=== PATIENT | male | born 1955 | race Caucasian/White ===

== ENCOUNTER 2024-02-21 11:14 | Observation (INO) | payer MEDICARE, BC, SELFPAY ==
[2024-02-21] VITALS (29 sets, daily range): BP systolic 123–162; BP diastolic 69–118; PULSE 79–159; RESP 14–35; TEMP 36.3–37.1; O2SAT 93–99; BMI 46.5
--- NOTE | 2024-02-21 | ECHO_ITS ---
Patient Info Name: Mike Zhang Age: 68 years : 1955 Gender: Male Ht: 73 in Wt: 352 lbs BSA: 2.94 m2 HR: 120 bpm BP: 128 / 76 mmHg Heart Rhythm: Atrial Flutter Technical Quality: Poor Exam Date: 02/21/2024 3:48 PM Exam Location: Echo Lab Patient Status: Inpatient Admit Date: 02/21/2024 Staff Ordering Physician: Joy Joel Orthotic Fitter: Jj Fong RDCS Attending Provider: Albina Isaacs MD Referring Physician: Marycruz ALY; Exam Type: CA echo dop color flow w con Study Info Indications - atrial flutter Complete two-dimensional, color flow and Doppler transthoracic echocardiogram is performed with contrast to opacify the left ventricle and to improve the deliniation of the left ventricle endocardial borders. Contrast/Agitated Saline Contrast/Ag. Saline: Definity Amount: 4.00 ml Existing IV Access: Yes Reason for Poor Study: patient body habitus Summary 1. Technically difficult echocardiogram, definity contrast utilized to improve enhance visualization. 2. Normal left ventricular size with mildly reduced systolic function. 3. Mildly sclerotic aortic valve which is nonstenotic. 4. Atrial flutter. Left Ventricle Left ventricular chamber dimension is normal. Left ventricular systolic function is mildly reduced, estimated at 45-50%. The left ventricular diastolic function is grade I diastolic dysfunction. Right Ventricle Right ventricular chamber dimension is normal. Left Atria Left atrial chamber dimension is normal. Right Atria Right atrial chamber dimension is normal. Aortic Valve The aortic valve is not well visualized. There is mild aortic valve sclerosis. Pulmonic Valve The pulmonic valve is not well visualized. Mitral Valve The mitral valve has normal leaflets. Tricuspid Valve The tricuspid valve leaflets are not well visualized. Pericardium/Pleural The pericardium appears normal. Aorta The aortic root size at the sinus of Valsalva is normal. Left Ventricular Outflow Tract Name Value Normal LVOT 2D LVOT Diameter 1.97 cm LVOT Doppler LVOT Peak Gradient 5 mmHg LVOT Mean Gradient 3 mmHg LVOT VTI 18.80 cm LVOT VTI/AV VTI Ratio 0.92 LVOT Stroke Volume 57.32 ml LVOT CO 3.07 l/min LVOT CI 1.04 L/min/m2 Pulmonic Valve Name Value Normal PV Doppler PV Peak Gradient 4 mmHg Mitral Valve Name Value Normal MV Doppler MV Peak Gradient 4 mmHg MV Mean Gradient
--- NOTE | ~2024-02-21 | XR_ITS ---
XR chest 1V portable 02/21/2024 13:04 Indication: Shortness of breath Procedure: AP portable chest Comparison: 11/28/2011 Findings: Cardiomegaly with interstitial edema. No pleural effusion or pneumothorax. Impression: 1: Cardiomegaly with mild interstitial edema. Reviewed, dictated and finalized at location B. Impression: 1: Cardiomegaly with mild interstitial edema.
--- NOTE | 2024-02-21 11:17 | ECG_ITS ---
Test Date: 2024-02-21 11:22:43 Measurements Intervals [place] Rate: 158 P: 0 CA: 0 QRS: -6 QRSD: 96 T: 48 QT: 267 QTc: 434 Interpretive Statements ATRIAL FLUTTER/TACHYCARDIA WITH RAPID VENTRICULAR RESPONSE DELAYED PRECORDIAL R/S TRANSITION BORDERLINE ST ABNORMALITY- LATERAL LEADS ABNORMAL ECG No previous ECG available for comparison Electronically Signed On 02-21-2024 11:44:05 CDT by Lai Nova D.O.
[2024-02-21] MEDS: METOPROLOL TARTRATE INJ 5 MG/5 ML VIAL IV PUSH (11:41)
--- NOTE | 2024-02-21 11:42 | ED.GENADULT ---
HPI - General Adult General Chief complaint: Shortness of Breath/Dyspnea Stated complaint: sob, sweating Time Seen by Provider: 02/21/24 11:33 History of Present Illness HPI narrative: 68-year-old male presenting emergency department for evaluation for intermittent rapid heart rate. Patient states this has occurred at nighttime last few nights but feels that it does improve during the day. Yesterday patient went on extended bike ride and did not have any symptoms. Patient states that his heart rate did increase today but patient is unsure how long it has been this elevated. Patient denies any associated chest pain or shortness of breath. Patient denies any prior cardiac history. Related Data Allergies Allergy/AdvReac Type Severity Reaction Status Date / Time codeine AdvReac Intermediate Nausea and Verified 02/21/24 14:46 Vomiting Review of Systems Review of Systems: All systems reviewed & are unremarkable except as noted in HPI and below PMFSH Past Medical History Medical History (Updated 02/21/24 @ 18:33 by Anthony Ragland MD) Pre-diabetes Surgical History Surgical History Hx of cholecystectomy Hx of vasectomy Family History Family History Father COPD (chronic obstructive pulmonary disease) CHF (congestive heart failure) Mother Diabetes mellitus Social History Social History (Updated 01/09/22 @ 08:04 by Bebe Carey MA) Smoking status: Never smoker Second hand tobacco smoke exposure: No Alcohol intake: current Drinks per week: 1 Alcohol use details: Socially Substance use: never Substance use type: does not use Do You Feel Safe in your Home?: Yes Lack of Transportation: No Lack of Food: Never True Current Housing: I Have Housing Concerned About Future Housing: No Difficulty Paying Gas/Electric Bills: No Difficulty Paying for Meds: No Currently Unemployed: No Education: Don't Know Difficulty w/ Childcare or Family Care: Decline to Answer Living arrangements: with family Occupation/Education: retired Gender identity (if verbalized by the patient): Male Sexual Orientation (if Verbalized by the Patient): Straight or Heterosexual Spiritual care concerns: No Agree to blood products: Yes Exam Narrative: APPEARANCE: Well appearing, no pain, no distress, well-nourished. HEAD: normocephalic, atraumatic. EYES: PERRLA/EOMI, conjunctivae clear. NOSE: Normal no drainage EARS:TMS clear with good light reflex. THROAT: Pharynx clear, no exudate. NECK: Supple. No adenopathy, no masses. RESPIRATORY: Airway patent, respirations nonlabored. Clear to auscultation bilaterally, no rales, rhonchi, wheezing. CARDIOVASCULAR: Tachycardia ABDOMINAL: Soft, nontender, nondistended, normal bowel sounds MUSCULOSKELETAL: Moves all extremities. Strength/ROM intact, No edema, No calf tenderness. NEURO: Alert. Cranial nerves II through XII intact. Grossly intact SKIN: Warm, dry. Normal Color Course Course Emergency Course: Patient was admitted to the hospitalist for new onset atrial flutter. Cardiology was consulted. Vital Signs Vital signs: Vital Signs Temperature 98.4 F 02/21/24 11:25 Pulse Rate 158 H 02/21/24 11:25 Respiratory Rate 18 02/21/24 11:25 Blood Pressure 141/105 H 02/21/24 11:25 Pulse Oximetry 95 02/21/24 11:25 Oxygen Delivery Room Air 02/21/24 11:25 Temperature 97.4 F L 02/21/24 16:23 Pulse Rate 135 H 02/21/24 16:23 Respiratory Rate 24 H 02/21/24 16:23 Blood Pressure 127/97 H 02/21/24 16:23 Pulse Oximetry 98 02/21/24 16:23 Oxygen Delivery Room Air 02/21/24 15:00 Medical Decision Making MDM Narrative Medical decision making narrative: 68-year-old male presenting emergency department for evaluation for rapid heart rate. Patient's initial EKG was read is AFib a flutter but heart rate wa
[2024-02-21 12:03] LABS: Basophils Absolute Auto 0.1 K/mm3 (0.0-0.1); Basophils Percent Auto 0.4 % (0.2-1.2); Eosinophils Absolute Auto 0.1 K/mm3 (0-0.3); Eosinophils Percent Auto 0.5 % (0-4.4); Hemoglobin 19.5 g/dL (14.0-18.0); Immature Granulocyte Absolute 0.06 K/mm3 (0.00-0.031); Immature Granulocyte Percent A 0.4 % (0-0.5); Lymphocytes Absolute Auto 1.49 K/mm3 (0.9-3.2); Lymphocytes Percent Auto 10.8 % (18.3-44.2); Mean Corpuscular HGB Conc 33.6 g/dl (32-36); Mean Corpuscular Hemoglobin 30.8 pg (26-34); Mean Corpuscular Volume 91.6 fl (80-100); Mean Platelet Volume 9.9 fl (7.4-10.4); Monocytes Percent Auto 6.9 % (2.6-8.5); Neutrophils Absolute Auto 11.1 K/mm3 (1.3-6.7); Platelet Count Result 262 k/mm3 (150-375); Red Blood Count 6.33 M/mm3 (4.6-6.20); Red Cell Distribution Width 14.4 % (11.5-14.5); White Blood Count 13.8 K/mm3 (4.5-10.0)
[2024-02-21] MEDS: ADENOSINE IV SOLN 6 MG/2 ML VIAL IV PUSH (12:10)
[2024-02-21 12:17] LABS: Alanine Aminotransferase 31 U/L (6-50); Albumin Level 4.4 g/dL (3.5-5.1); Alkaline Phosphatase 78 U/L (38-126); Anion Gap 9 mmol/L (4-12); Aspartate Amino Transferase 26 U/L (17-59); Bilirubin,Total 1.7 mg/dL (0.2-1.3); Blood Urea Nitrogen 23 mg/dL (9-20); Calcium 8.6 mg/dL (8.4-10.2); Carbon Dioxide 27 mmol/L (22-30); Chloride 100 mmol/L (98-107); Estimated CRCL calculation 72 ml/min; Estimated Glomerular Filt Rate 51; Glucose 115 mg/dL (65-110); Potassium 4.5 mmol/L (3.4-5.0); Sodium 136 mmol/L (137-145)
--- NOTE | 2024-02-21 12:22 | ECG_ITS ---
Test Date: 2024-02-21 12:50:45 Measurements Intervals [place] Rate: 96 P: 0 MO: 0 QRS: 5 QRSD: 106 T: 56 QT: 329 QTc: 417 Interpretive Statements ATRIAL FLUTTER/TACHYCARDIA DELAYED PRECORDIAL R/S TRANSITION BASELINE ARTIFACT- I, II, III, AVL, AVF ABNORMAL ECG Compared to ECG 02/21/2024 11:22:43 HEART RATE HAS DECREASED Electronically Signed On 02-21-2024 13:19:16 CDT by Lai Nova D.O.
[2024-02-21] MEDS: ADENOSINE IV SOLN 6 MG/2 ML VIAL 12 MG IV PUSH (12:25)
[2024-02-21 12:35] LABS: D Dimer < 0.27 ug/mL (<0.48)
[2024-02-21] MEDS: SODIUM CHLORIDE 0.9% IV 1,000 ML 999 ML IV CONT (12:35)
[2024-02-21] MEDS: dilTIAZem HCl INJ 25 MG/5 ML VIAL 10 MG IV PUSH (12:36)
[2024-02-21] MEDS: dilTIAZem 100 MG/100 ML 100 MG/100 ML BAG IV CONT (12:53)
[2024-02-21 13:55] LABS: Magnesium 1.7 mg/dL (1.6-2.3)
[2024-02-21 14:01] LABS: NT Pro B Type Natriuretic Pept 4180 pg/mL (19.9-100)
--- NOTE | 2024-02-21 14:23 | ADMGEN ---
This patient, Mike Zhang, was admitted to IMU Room 200-01. Patient/family oriented to hospital policies and general routines including ID bracelet, bed and alarms, visiting hours, pain management, procedures, bathroom and other care routines, personal items, smoking policy, room service/diet, and visiting hours. Information on how to activate the Rapid Response Team has been discussed. Patient/Family are encouraged to report perceived risks to care and to ask questions if they do not understand what they are told or what they should do.
--- NOTE | 2024-02-21 14:50 | PM.CNCAR ---
Assessment and Plan Assessment and plan (1) Atrial flutter: Code(s): I48.92 - Unspecified atrial flutter Status: Acute Assessment and Plan: This is a new diagnosis. By his history he has been having symptoms for about 5 weeks. I discussed the diagnosis with him including pathophysiology, management options, and complications/risks. I think it would be best to try and restore sinus rhythm, but since he has been having intermittent symptoms for over a month, he needs to be anticoagulated for at least 4 weeks before we attempt this. For now, will continue with rate control with plan for outpatient cardioversion in 4-6 weeks Continue diltiazem gtt Will shift him to p.o. diltiazem tomorrow He has a CHADs2 Vasc score of 2 (age, HTN), so systemic a/c is indicated. Start apixaban 5mg b.i.d. Check echo TSH 3.6 Recent diagnosis of KURTIS, in the process of getting CPAP. Emphasized the importance of treating KURTIS Anticipate discharge tomorrow if his rate remains controlled. History of Present Illness History of Present Illness Consult date/time: 02/21/24 14:50 Requesting physician: Anthony Ragland MD Consult reason: Other (atrial flutter) Reason For Visit: atrial flutter Narrative: Mike Zhang is a 68 year old male with a history of hypertension (not currently taking any medication). He comes to the hospital because of rapid, pounding heartbeat and shortness of breath. Patient states he has been experiencing palpitations intermittently for the past month, however this morning he felt his heart was beating harder and faster and he was also short of breath. In the emergency department he was found to be in rapid atrial flutter, rate in the 160's. He has been placed on a diltiazem drip and his rate is now controlled and he is asymptomatic. Review of Systems Review of Systems: All systems reviewed & are unremarkable except as noted in HPI and below [facility] Surgical History Surgical History Hx of cholecystectomy Hx of vasectomy Family History Family History Father COPD (chronic obstructive pulmonary disease) CHF (congestive heart failure) Mother Diabetes mellitus Social History Social History (Updated 01/09/22 @ 08:04 by Bebe Carey MA) Smoking status: Never smoker Second hand tobacco smoke exposure: No Alcohol intake: current Alcohol use details: Socially Substance use: never Substance use type: does not use Living arrangements: with family Occupation/Education: retired Gender identity (if verbalized by the patient): Male Sexual Orientation (if Verbalized by the Patient): Straight or Heterosexual Spiritual care concerns: No Agree to blood products: Yes Meds Home Medications and Allergies Home Medications Medication Instructions Recorded Confirmed Type sildenafil 100 mg tablet (Viagra) 100 mg PO DAILY PRN sexual 11/07/23 02/21/24 Rx activity #10 tabs testosterone 2 pump topical DAILY #75 grams 02/10/24 02/21/24 Rx Allergies Allergy/AdvReac Type Severity Reaction Status Date / Time codeine AdvReac Intermediate Nausea and Verified 02/21/24 14:46 Vomiting Vital Signs Vital Signs - 24 hr 02/21/24 11:25 02/21/24 11:34 02/21/24 11:34 Temperature 36.9 C Pulse Rate 158 H 158 H 158 H Respiratory Rate 18 16 Blood Pressure 141/105 H 162/118 H Pulse Oximetry 95 96 Oxygen Delivery Room Air 02/21/24 11:36 02/21/24 11:41 02/21/24 12:53 Temperature Pulse Rate 159 H 103 H Respiratory Rate Blood Pressure Pulse Oximetry Oxygen Delivery Room Air 02/21/24 11:34 02/21/24 11:35 02/21/24 11:49 Temperature Pulse Rate 158 H 158 H 156 H Respiratory Rate 14 17 21 H Blood Pressure 162/118 H Pulse Oximetry 95 95 94 Oxygen Delivery 02/21/24 12:00 02/21/24 12:01 02/21/24 12:22 Temperature Pulse
[2024-02-21] MEDS: PERFLUTREN LIPID MICROSPHERES 1.5 ML VIAL DILUTED TO 10 ML TOTAL VOLUME IV PUSH (16:24)
--- NOTE | 2024-02-21 16:24 | IVDEFINITY ---
Prior to administration of IV Definity the patient was educated on the risks and benefits of the imaging enhancing agent including potential adverse side effects. The patient verbalized understanding. Allergies were verified. No exclusion criteria were identified and at least one of the following inclusion criteria were met: 1) physician request, 2) patient technically difficult to image (per the [place] [employer]ocardi[employer] guidelines of two or more segments not discernable within the apical view), or 3) questionable left ventricular function. ?
--- NOTE | 2024-02-21 16:36 | PM.IMHP ---
H&P: HPI History of Present Illness Date/Time: 02/21/24 16:36 Chief Complaint: Shortness of breath and pounding heartbeat Narrative: This is a pleasant 68-year-old male with a PMH morbid obesity, hypertension, recurrent conjunctivitis, KURTIS compliant with CPAP, pre diabetes. Currently not on any medications except for sildenafil and testosterone. For the past month he has intermittently been experiencing palpitations with shortness of breath. He finally decided to present to [facility]. There, he was found to be in rapid a flutter with rate in the 160s. Adenosine was given which again revealed atrial flutter. He was given metoprolol 5 mg IV x1, diltiazem 10 mg IV x1, and normal saline. White blood cell count 13.8, hemoglobin 19.5, sodium 136, BUN 23, serum creatinine 1.40, total bilirubin 1.7, BNP 4100, TSH 3.6. Admitted on 02/21/2024 atrial flutter with rapid rate which is a new diagnosis. Review of Systems Review of Systems: All systems reviewed & are unremarkable except as noted in HPI and below (Subjective) [facility] Past Medical History Medical History (Updated 02/21/24 @ 16:41 by Albina Isaacs MD) Pre-diabetes Surgical History Surgical History Hx of cholecystectomy Hx of vasectomy Family History Family History Father COPD (chronic obstructive pulmonary disease) CHF (congestive heart failure) Mother Diabetes mellitus Social History Social History (Updated 01/09/22 @ 08:04 by Bebe Carey MA) Smoking status: Never smoker Second hand tobacco smoke exposure: No Alcohol intake: current Drinks per week: 1 Alcohol use details: Socially Substance use: never Substance use type: does not use Do You Feel Safe in your Home?: Yes Lack of Transportation: No Lack of Food: Never True Current Housing: I Have Housing Concerned About Future Housing: No Difficulty Paying Gas/Electric Bills: No Difficulty Paying for Meds: No Currently Unemployed: No Education: Don't Know Difficulty w/ Childcare or Family Care: Decline to Answer Living arrangements: with family Occupation/Education: retired Gender identity (if verbalized by the patient): Male Sexual Orientation (if Verbalized by the Patient): Straight or Heterosexual Spiritual care concerns: No Agree to blood products: Yes Meds Home Medications and Allergies Home Medications Medication Instructions Recorded Confirmed Type sildenafil 100 mg tablet (Viagra) 100 mg PO DAILY PRN sexual 11/07/23 02/21/24 Rx activity #10 tabs testosterone 2 pump topical DAILY #75 grams 02/10/24 02/21/24 Rx Allergies Allergy/AdvReac Type Severity Reaction Status Date / Time codeine AdvReac Intermediate Nausea and Verified 02/21/24 14:46 Vomiting Vital Signs Vital Signs - 24 hr 02/21/24 11:25 02/21/24 11:34 02/21/24 11:34 Temperature 98.4 F Pulse Rate 158 H 158 H 158 H Respiratory Rate 18 16 Blood Pressure 141/105 H 162/118 H Pulse Oximetry 95 96 Oxygen Delivery Room Air 02/21/24 11:36 02/21/24 11:41 02/21/24 12:53 Temperature Pulse Rate 159 H 103 H Respiratory Rate Blood Pressure Pulse Oximetry Oxygen Delivery Room Air 02/21/24 11:34 02/21/24 11:35 02/21/24 11:49 Temperature Pulse Rate 158 H 158 H 156 H Respiratory Rate 14 17 21 H Blood Pressure 162/118 H Pulse Oximetry 95 95 94 Oxygen Delivery 02/21/24 12:00 02/21/24 12:01 02/21/24 12:22 Temperature Pulse Rate 155 H 155 H 155 H Respiratory Rate 21 H 22 H 22 H Blood Pressure 130/101 H Pulse Oximetry 94 93 95 Oxygen Delivery 02/21/24 12:31 02/21/24 12:32 02/21/24 12:45 Temperature Pulse Rate 157 H 156 H 106 H Respiratory Rate 23 H 23 H 33 H Blood Pressure 128/80 Pulse Oximetry 95 94 95 Oxygen Delivery 02/21/24 12:46 02/21/24 13:00 02/21/24 13:01 Tem
[2024-02-21 17:09] LABS: Hemoglobin A1C 5.4 % (<5.7)
[2024-02-21 18:22] LABS: Appearance Urine Clear (Clear); Bacteria Urine None Seen /hpf; Bilirubin Urine Negative (Negative); Blood Urine Negative (Negative); Color Urine Dark Yellow (Yellow); Glucose Urine UA Negative (Negative); Ketones Urine Negative (Negative); Leukocyte Esterase Ur Trace LEU/UL (Negative); Nitrate Urine Negative (Negative); Non Pathogenic Casts 0-2; Protein Urine 1+ mg/dL (Negative); RBC Urine 0-2 /hpf (0-2); Specific Grav Ur 1.024 (1.001-1.035); Squamous Epithelial Cell Urine None Seen /hpf (Few); WBC Urine 0-5 /hpf (0-3); pH Urine 6.5 (5.0-9.0)
[2024-02-21 18:29] LABS: Add Urine Microscopic? YES
[2024-02-21 18:39] LABS: Sodium Urine Random 30 meq/L
[2024-02-21 18:49] LABS: Eosinophil Urine Rare % (None Seen); Urine Eos QC 2nd Tech Confirmed
[2024-02-21] MEDS: APIXABAN 5 MG TABLET PO (20:31)
[2024-02-22] VITALS (12 sets, daily range): BP systolic 127–138; BP diastolic 83–94; PULSE 77–106; RESP 18–22; TEMP 36–36.8; O2SAT 94–97
[2024-02-22 04:48] LABS: Basophils Absolute Auto 0.1 K/mm3 (0.0-0.1); Basophils Percent Auto 0.5 % (0.2-1.2); Eosinophils Absolute Auto 0.1 K/mm3 (0-0.3); Eosinophils Percent Auto 1.3 % (0-4.4); Hematocrit 54.6 % (42.0-52.0); Hemoglobin 17.9 g/dL (14.0-18.0); Immature Granulocyte Absolute 0.06 K/mm3 (0.00-0.031); Immature Granulocyte Percent A 0.6 % (0-0.5); Lymphocytes Absolute Auto 1.56 K/mm3 (0.9-3.2); Lymphocytes Percent Auto 16.9 % (18.3-44.2); Mean Corpuscular HGB Conc 32.8 g/dl (32-36); Mean Corpuscular Hemoglobin 30.4 pg (26-34); Mean Corpuscular Volume 92.9 fl (80-100); Mean Platelet Volume 10.1 fl (7.4-10.4); Monocytes Absolute Auto 0.6 K/mm3 (0.1-0.6); Monocytes Percent Auto 6.5 % (2.6-8.5); Neutrophils Absolute Auto 6.9 K/mm3 (1.3-6.7); Neutrophils Percent Auto 74.2 % (45.5-73.1); Platelet Count Result 197 k/mm3 (150-375); Red Blood Count 5.88 M/mm3 (4.6-6.20); White Blood Count 9.2 K/mm3 (4.5-10.0)
[2024-02-22 05:07] LABS: Anion Gap 7 mmol/L (4-12); Blood Urea Nitrogen 20 mg/dL (9-20); Calcium 8.2 mg/dL (8.4-10.2); Carbon Dioxide 29 mmol/L (22-30); Chloride 100 mmol/L (98-107); Estimated CRCL calculation 69 ml/min; Estimated Glomerular Filt Rate 47; Glucose 103 mg/dL (65-110); Magnesium 1.9 mg/dL (1.6-2.3); Potassium 4.4 mmol/L (3.4-5.0); Sodium 136 mmol/L (137-145)
[2024-02-22 05:18] LABS: Procalcitonin 0.1 ng/mL
[2024-02-22] MEDS: dilTIAZem HCL CD 180 MG CAP.24HR PO (08:33)
[2024-02-22] MEDS: APIXABAN 5 MG TABLET PO (08:33)
--- NOTE | 2024-02-22 12:07 | PM.PNCARD ---
Progress Note: A&P Assessment and Plan (1) Atrial flutter: Code(s): I48.92 - Unspecified atrial flutter Status: Acute Plan Assessment Atrial fibrillation with controlled V response Morbid Obesity Sleep apnea HTN controlled Plan Cont diltiazem Cont OAC apixaban 5 mg BID Subjective Date/time seen: 02/22/24 12:07 Interval history: No acute events Review of Systems Review of Systems: All systems reviewed & are unremarkable except as noted in HPI and below Exam Const: General: comfortable and no acute distress Other: Able to lie flat HENMT: Face/Nose/Sinus: Normal nares present and no epistaxis Mouth: Yes moist mucous membranes Eyes: Sclera: sclerae normal Pupils: Equal, round and reactive pupils present Neck: Neck: supple and no JVD Carotids: no bruits Resp: Auscultation: clear to auscultation bilaterally and lung sounds not diminished Other: No chest wall tenderness Cardio: Rate: regular rate Rhythm: regular rhythm Heart sounds: no gallops, no murmurs and no rubs GI: GI Palp: Yes Soft to palpation and No Tenderness to palpation present (GI) Auscultation: normal bowel sounds Skin: General skin exam: normal color, rashes and/or lesions noted and no erythema Other: Warm Neuro: Cranial nerves: Yes Equal, round and reactive pupils present Speech: normal speech Other: No obvious focal deficit or facial asymmetry Extrem: General: no edema Other: Normal capillary refills Intact distal pulses. Objective Data Vital Signs Vital Signs: Vital Signs - 24 hr 02/21/24 12:53 02/21/24 12:22 02/21/24 12:31 Temperature Pulse Rate 103 H 155 H 157 H Respiratory Rate 22 H 23 H Blood Pressure 128/80 Pulse Oximetry 95 95 Oxygen Delivery 02/21/24 12:32 02/21/24 12:45 02/21/24 12:46 Temperature Pulse Rate 156 H 106 H 112 H Respiratory Rate 23 H 33 H 23 H Blood Pressure 139/71 Pulse Oximetry 94 95 96 Oxygen Delivery 02/21/24 13:00 02/21/24 13:01 02/21/24 13:02 Temperature Pulse Rate 107 H 105 H 116 H Respiratory Rate 35 H Blood Pressure 125/78 Pulse Oximetry 95 95 95 Oxygen Delivery 02/21/24 13:20 02/21/24 13:22 02/21/24 13:30 Temperature Pulse Rate 102 H 106 H 102 H Respiratory Rate 23 H 19 22 H Blood Pressure 134/79 Pulse Oximetry 96 95 94 Oxygen Delivery 02/21/24 13:31 02/21/24 14:29 02/21/24 16:23 Temperature 36.6 C 36.3 C L Pulse Rate 112 H 120 H 135 H Respiratory Rate 21 H 24 H 24 H Blood Pressure 134/81 128/76 127/97 H Pulse Oximetry 94 96 98 Oxygen Delivery 02/21/24 15:00 02/21/24 19:45 02/21/24 16:00 Temperature 36.6 C Pulse Rate 80 98 Respiratory Rate 16 Blood Pressure 128/85 Pulse Oximetry 99 97 Oxygen Delivery Room Air 02/21/24 18:00 02/21/24 23:37 02/21/24 23:37 Temperature 37.1 C Pulse Rate 80 79 Respiratory Rate 14 Blood Pressure 123/69 132/73 Pulse Oximetry 96 Oxygen Delivery 02/21/24 20:00 02/21/24 22:00 02/22/24 00:00 Temperature Pulse Rate 80 84 93 Respiratory Rate Blood Pressure Pulse Oximetry Oxygen Delivery 02/22/24 02:00 02/22/24 03:42 02/22/24 04:00 Temperature 36.8 C Pulse Rate 77 88 84 Respiratory Rate 18 Blood Pressure 127/83 Pulse Oximetry 97 Oxygen Delivery 02/22/24 06:00 02/22/24 08:01 02/22/24 09:45 Temperature 36.4 C Pulse Rate 93 101 H 85 Respiratory Rate 22 H Blood Pressure 135/89 Pulse Oximetry 94 Oxygen Delivery 02/22/24 10:36 02/22/24 11:51 Temperature 36.0 C L Pulse Rate 101 H Respiratory Rate 20 Blood Pressure 138/94 H Pulse Oximetry 95 97 Oxygen Delivery Room Air Intake/Output Intake/Output: Intake & Output 02/19/24 02/20/24 02/21/24 02/22/24 23:59 23:59 23:59 23:59 Intake Total 1590 1440 Output Total 400 800 Balance 1190 640 Meds/Results Medications: Active Medications Generic Name Dose Route S
--- NOTE | 2024-02-22 12:32 | ECG_ITS ---
Test Date: 2024-02-22 12:45:47 Measurements Intervals [place] Rate: 72 P: -8 [place]: 184 QRS: 29 QRSD: 118 T: 32 QT: 369 QTc: 406 Interpretive Statements SINUS RHYTHM INTRAVENTRICULAR CONDUCTION DELAY MINIMAL Q WAVES- HIGH LATERAL LEADS BORDERLINE ECG Compared to ECG 02/21/2024 12:50:45 SINUS RHYTHM NOW PRESENT Electronically Signed On 02-22-2024 19:40:10 CDT by Lai Nova D.O.
--- NOTE | 2024-02-22 12:37 | PC.NURSE ---
Spoke with Dr. Gutierrez via face-face. Dr. Gutierrez stated patient is okay to DC from cardiology standpoint, although it was not mentioned in his note. Dr. Isaacs informed.
--- NOTE | 2024-02-25 15:56 | PM.DS ---
DS: Admitting Diagnosis Discharge Date 02/22/24 Admitting Diagnosis Contusions and shortness of breath DS: Discharge Diagnosis Discharge Diagnosis (1) Atrial flutter: Code(s): I48.92 - Unspecified atrial flutter Status: Acute DS: Summary Hospital Course Hospital Course: This is a pleasant 68-year-old male with a PMH morbid obesity, hypertension, recurrent conjunctivitis, KURTIS compliant with CPAP, pre diabetes. Currently not on any medications except for sildenafil and testosterone. For the past month he has intermittently been experiencing palpitations with shortness of breath. He finally decided to present to [place]. There, he was found to be in rapid a flutter with rate in the 160s. Adenosine was given which again revealed atrial flutter. He was given metoprolol 5 mg IV x1, diltiazem 10 mg IV x1, and normal saline. White blood cell count 13.8, hemoglobin 19.5, sodium 136, BUN 23, serum creatinine 1.40, total bilirubin 1.7, BNP 4100, TSH 3.6. Admitted on 02/21/2024 atrial flutter with rapid rate which is a new diagnosis. Patient is now stable for discharge on 02/22/2024. As advised by Cardiology Dr. Gutierrez. The patient is also feeling at his baseline. He is discharged on Eliquis and diltiazem. He is going to follow-up with the cardiology clinic. Adverse effects, risk and benefits of medication discussed. Patient is agreeable to the plan. Please see below for the individual problems and management.: # atrial flutter with rapid rate -status: New diagnosis -cardiology consulted. Patient is on a diltiazem GTT, plant as shift him to p.o. diltiazem tomorrow. Chads Vasc score 2 with age and hypertension. Apixaban 5 mg p.o. b.i.d. Surface echocardiogram 1. Technically difficult echocardiogram, definity contrast utilized to improve enhance visualization. 2. Normal left ventricular size with mildly reduced systolic function. 3. Mildly sclerotic aortic valve which is nonstenotic. 4. Atrial flutter. -TSH 3.6 # pre diabetes morbid obesity and sleep apnea -status: Chronic -check HbA1c. -advised lifestyle change -more than a decade ago he tried a face mask and he did not want it. He has a sleep study scheduled again in the near future to get another mask. Advised the patient there are new masks which have been invented which some people tolerate better. He seems enthusiastic to try again. Advised the importance of treating his sleep apnea and the risk associated with sleep apnea. -CPAP at night, auto PAP. # elevated serum creatinine -status: Chronicity unknown -in 2021 his serum creatinine was 1.29. It is possible he has underlying CKD. -serum creatinine 1.4/1.5. Patient advised to have close follow-up with Nephrology to which he agrees. He is making adequate urine. #leukocytosis: Likely reactive. Resolved. Procalcitonin within normal limits. # adverse reaction to Definity contrast -status: Acute, improved -10 minutes after receiving contrast he complained of lower back pain which radiated down the legs. This resolved within a few minutes. Chronic Conditions -recurrent conjunctivitis: He currently has conjunctivitis for which she was prescribed eyedrops by his PCP. Will continue those. -hypertension: History of, not on antihypertensives at home. Was started on diltiazem and he tolerated that. -use of testosterone, advised patient on risks. He has an elevated hemoglobin Medication reconciliation obtained via the following: Patient's verbal confirmation of medications Social Drivers of Health -Living arrangements, functional status, significant history: Independent at home. Does not use assistive devices. Lives with his . 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 -Patient was screened for food insecurity, housing instability, transportation needs, utility difficulties, and interpersonal safety. No needs identified -High risk for readmi
== END 2024-02-22 14:20 | disposition home or self-care (01) ==
LOC: ANHED 12:12 → ANHIMU 13:37
PROVIDERS: Admitting Provider General Practice; Emergency Provider Emergency Medicine; PCP Family Medicine Adolescent Medicine; Visit Provider General Practice
DX: I48.92 Unspecified atrial flutter (principal); R79.89 Other specified abnormal findings of blood chemistry; D72.829 Elevated white blood cell count, unspecified; T50.8X5A Adverse effect of diagnostic agents, initial encounter; M54.50 Low back pain, unspecified; I10 Essential (primary) hypertension; G47.33 Obstructive sleep apnea (adult) (pediatric); R73.03 Prediabetes; E66.01 Morbid (severe) obesity due to excess calories; Z68.42 Body mass index [BMI] 45.0-49.9, adult
CPT/HCPCS: 36415; 71045; 80048; 80053; 81001; 82570; 83036; 83735; 83880; 84145; 84300; 84443; 85025; 85380; 85999; 93005; 96366; 96374; 96375; 96376; 99285; A9270; C8929; G0378; J0153; J7030; Q9957

== ENCOUNTER 2025-05-31 13:58 | Outpatient (CLI) | payer MEDICARE, BC, SELFPAY ==
--- NOTE | ~2025-05-31 | XR_ITS ---
XR hand LT min 3V 05/31/2025 14:23 Indication: Left hand mallet pain Procedure: 3 views left hand Comparison: No prior studies for comparison. Findings: There is an avulsion fracture base of the first metacarpal, age indeterminate. There is polyarticular osteoarthritis most advanced at the first carpal metacarpal and metacarpal phalangeal joints. No soft tissue abnormality. Impression: 1: Polyarticular osteoarthritis most advanced at the first carpal metacarpal and metacarpal phalangeal joints. 2: Age-indeterminate avulsion fracture base of the left first metacarpal. Reviewed, dictated and finalized at location O. TECHNICAL ARCHITECT Impression: 1: Polyarticular osteoarthritis most advanced at the first carpal metacarpal an d metacarpal phalangeal joints. 2: Age-indeterminate avulsion fracture base of the left first metacarpal.
--- NOTE | ~2025-05-31 | XR_ITS ---
EXAMINATION: XR finger 2nd LT min 2V, 05/31/2025 14:16 PLY CUTTER HISTORY: M20.012 - Mallet finger of left finger(s) COMPARISON: No comparisons available. Findings: No acute fracture or malalignment. Moderate degenerative changes Soft tissues unremarkable. Impression: No acute fracture or malalignment. Reviewed, dictated and finalized at location P. CUTTER Impression: No acute fracture or malalignment.
== END 2025-05-31 13:59 | disposition home or self-care (01) ==
PROVIDERS: PCP Family Medicine Adolescent Medicine; Visit Provider Plastic Surgery
DX: M20.012 Mallet finger of left finger(s) (principal); M19.042 Primary osteoarthritis, left hand
CPT/HCPCS: 73130; 73140